=== PATIENT | male | born 1990 | race Caucasian/White ===

== ENCOUNTER 2016-09-17 20:14 | Emergency (ER) | payer BC, OTHER ==
[2016-09-17 21:12] VITALS: BP 129/76; PULSE 60; RESP 20; TEMP 98.2
[2016-09-17] MEDS ORDERED: IPRATROPIUM-ALBUTEROL 3 ML NEB INHALATION STA (21:18)
--- NOTE | 2016-09-17 21:32 | ED ---
General Adult HPI - General Chief complaint: Upper Respiratory Infection Stated complaint: SOB Time Seen by Provider: 09/17/16 20:15 Source: patient, RN notes reviewed Mode of arrival: ambulatory Limitations: no limitations - History of Present Illness Initial comments: This is a 26-year-old male with a past medical history significant for asthma but he has not had an exacerbation years. Patient states the last week he has been having tightness in his chest and coughing quite a bit. Patient states he been coughing up some sputum and this last time he had a little bit of blood in the sputum but he states he was coughing severely hard. Patient states he is mildly short of breath. No chest pain or palpitations. Patient denies any fever chills but he states he cannot stop coughing. Patient denies having any inhalers or nebulizer machines. Patient denies any smoking. - Related Data Previous Rx's Medication Instructions Recorded Albuterol Inhaler [Ventolin Hfa 1 - 2 puff INHALATION Q6HR PRN #2 09/17/16 Inhaler] puff Ciprofloxacin HCl [Cipro] 500 mg PO Q12HR #20 tablet 09/17/16 predniSONE 40 mg PO DAILY #8 tab 09/17/16 Allergies Allergy/AdvReac Type Severity Reaction Status Date / Time No Known Allergies Allergy Verified 07/05/15 06:06 Review of Systems ROS Statement: Those systems with pertinent positive or pertinent negative responses have been documented in the HPI. ROS Other: All systems not noted in ROS Statement are negative. Past Medical History Past Medical History: Asthma, Renal Disease Additional Past Medical History / Comment(s): polycystic kidney disease, eosinophillic esophagitis, History of Any Multi-Drug Resistant Organisms: None Reported Past Surgical History: No Surgical Hx Reported Past Psychological History: Anxiety Smoking Status: Never smoker Past Alcohol Use History: Occasional Past Drug Use History: None Reported General Exam - General Exam Comments Initial Comments: GENERAL: Patient is well-developed and well-nourished. Patient is nontoxic and well- hydrated and is in mild distress. ENT: Neck has full range of motion without eliciting any pain. EYES: The sclera were anicteric and conjunctiva were pink and moist. Extraocular movements were intact and pupils were equal round and reactive to light. Eyelids were unremarkable. PULMONARY: Slightly diminished breath sounds but no wheezing is heard. No audible rales rhonchi or wheezing was noted. CARDIOVASCULAR: There is a regular rate and rhythm without any murmurs gallops or rubs. ABDOMEN: Soft and nontender with normal bowel sounds. SKIN: Skin is clear with no lesions or rashes and otherwise unremarkable. NEUROLOGIC: Patient is alert and oriented x3. Cranial nerves II through XII are grossly intact. Motor and sensory are also intact. Normal speech, volume and content. Symmetrical smile. MUSCULOSKELETAL: Normal extremities with adequate strength and full range of motion. No lower extremity swelling or edema. No calf tenderness. LYMPHATICS: No significant lymphadenopathy is noted PSYCHIATRIC: Normal psychiatric evaluation. Normal interpersonal interactions appears functionally intact in deals appropriately with others. No signs of depression. No signs of anxiety. Limitations: no limitations Course Vital Signs 09/17/16 21:07 Temperature 98.2 F Pulse Rate 60 Respiratory 20 Rate Blood Pressure 129/76 O2 Sat by Pulse 100 Oximetry Medical Decision Making - Medical Decision Making Chest x-ray shows no acute abnormality Disposition Clinical Impression: Acute bronchitis with bronchospasm Disposition: HOME SELF-CARE Condition: Good Prescriptions: Albuterol Inhaler [Ventolin Hfa Inhaler] 1 - 2 puff INHALATION Q6HR PRN #2 puff PRN Reason: Difficulty breathing Ciprofloxacin HCl [Cipro] 500 mg PO Q12HR #20 tablet predniSONE 40 mg PO DAILY #8 tab Referrals: Bartolo Stewart MD [Primary Care Provider] - 1-2 days Time of Disposition: 21:41
[2016-09-17] MEDS ORDERED: predniSONE 50 MG TAB PO STA (21:38)
[2016-09-17] MEDS ORDERED: CIPROFLOXACIN HCL 500 MG TAB PO STA (21:39)
--- NOTE | 2016-09-17 21:54 | XR ---
EXAMINATION TYPE: XR chest 2V DATE OF EXAM: 09/17/2016 COMPARISON: August 21, 2014. HISTORY: Difficulty breathing TECHNIQUE: Frontal and lateral views of the chest are obtained. FINDINGS: There is no focal air space opacity, pleural effusion, or pneumothorax seen. The cardiac silhouette size is within normal limits. The osseous structures are intact. IMPRESSION: No acute cardiopulmonary process.
== END 2016-09-17 22:23 | disposition home or self-care (01) ==
LOC: EC 20:14
DX: J20.9 Acute bronchitis, unspecified (principal); R07.89 Other chest pain
CPT/HCPCS: 94640; 71020; 99283; J7512

== ENCOUNTER 2017-10-25 03:46 | Emergency (ER) | payer OTHER ==
[2017-10-25 03:51] VITALS: TEMP 97.6
[2017-10-25] MEDS ORDERED: MORPHINE SULFATE 4 MG/ML SYRINGE IVP STA (04:03)
[2017-10-25] MEDS ORDERED: ONDANSETRON 4 MG/2 ML VIAL IVP STA (04:03)
[2017-10-25] MEDS ORDERED: KETOROLAC 30 MG/ML 1 ML VIAL IVP STA (04:03)
[2017-10-25] MEDS ORDERED: SODIUM CHLORIDE 0.9% 1,000 ML IV ONE (04:15)
[2017-10-25 04:23] LABS: Basophils # (A) 0.1 k/uL (0-0.2); Basophils % (A) 1 %; Eosinophils # (A) 0.5 k/uL (0-0.7); Eosinophils % (A) 8 %; HCT 42.2 % (39.0-53.0); HGB 13.8 gm/dL (13.0-17.5); Lymphocytes # (A) 2.6 k/uL (1.0-4.8); Lymphocytes % (A) 45 %; MCH 28.5 pg (25.0-35.0); MCHC 32.6 g/dL (31.0-37.0); MCV 87.2 fL (80.0-100.0); Mean Platelet Volume 9.2; Monocytes # (A) 0.3 k/uL (0-1.0); Monocytes % (A) 5 %; Neutrophils # (A) 2.3 k/uL (1.3-7.7); Neutrophils % (A) 39 %; Platelet Count 186 k/uL (150-450); RBC 4.83 m/uL (4.30-5.90); RDW 12.9 % (11.5-15.5); WBC 5.8 k/uL (3.8-10.6)
--- NOTE | 2017-10-25 04:26 | ED ---
General Adult HPI - General Chief complaint: Urogenital Stated complaint: back pain Time Seen by Provider: 10/25/17 04:02 Source: patient Mode of arrival: ambulatory Limitations: no limitations - History of Present Illness Initial comments: Is a 27-year-old male with a history of polycystic kidney disease who presents emergency department for left-sided abdominal and flank pain. He states that his symptoms started 2 days ago however acutely worsened this morning and woke him from sleep. He states that he had some associated nausea and vomiting 2. He has been having hematuria. He was scheduled to have an ultrasound performed tomorrow to evaluate for kidney stone however the pain got so bad he decided come emergency department. He denies any dysuria or hematuria. No diarrhea or constipation. No other acute complaints. - Related Data Previous Rx's Medication Instructions Recorded Albuterol Inhaler [Ventolin Hfa 1 - 2 puff INHALATION Q6HR PRN #2 09/17/16 Inhaler] puff Ciprofloxacin HCl [Cipro] 500 mg PO Q12HR #20 tablet 09/17/16 predniSONE 40 mg PO DAILY #8 tab 09/17/16 HYDROcodone/APAP 5-325MG [[place] 1 tab PO Q6HR PRN 3 Days #8 tab 10/25/17 5-325] Tamsulosin [Flomax] 0.4 mg PO DAILY #7 cap 10/25/17 Allergies Allergy/AdvReac Type Severity Reaction Status Date / Time No Known Allergies Allergy Verified 10/25/17 03:51 Review of Systems ROS Statement: Those systems with pertinent positive or pertinent negative responses have been documented in the HPI. ROS Other: All systems not noted in ROS Statement are negative. Past Medical History Past Medical History: Asthma, Renal Disease Additional Past Medical History / Comment(s): polycystic kidney disease, eosinophillic esophagitis, History of Any Multi-Drug Resistant Organisms: None Reported Past Surgical History: No Surgical Hx Reported Past Psychological History: Anxiety Smoking Status: Never smoker Past Alcohol Use History: Occasional Past Drug Use History: None Reported General Exam - General Exam Comments Initial Comments: Constitutional: Awake alert patient appears uncomfortable and is diaphoretic Head: Normocephalic atraumatic Eyes: no conjunctival injection No scleral icterus EOMI Neck: No JVD Supple Heart: Regular rate rhythm normal S1-S2 no murmurs Lungs: Clear to auscultation bilaterally No wheezing No rales Abdomen: Soft nondistended mild tenderness to the left lower quadrant, no CVA tenderness Extremities: Non edematous DP pulses intact Radial pulses intact Neuro: A&Ox3 No focal neurologic deficits Psych: Appropriate mood and affect Limitations: no limitations Course Vital Signs 10/25/17 10/25/17 03:47 04:51 Temperature 97.6 F Pulse Rate 61 77 Respiratory 16 16 Rate Blood Pressure 116/63 108/56 O2 Sat by Pulse 100 Oximetry Medical Decision Making - Medical Decision Making Is a 27-year-old male who presents emergency department for left-sided flank pain. The patient has computed tomography scan that confirmed a 6 mm ureteral stone. The patient's pain was much controlled after pain medications. No evidence for infection. The patient will go home with Flomax and [place]. He was also discharged with a strainer and urology follow-up. Can return if he has recurring symptoms or anything concerning. All questions answered. - Lab Data Result diagrams: 10/25/17 03:57 10/25/17 03:57 Lab Results 10/25/17 10/25/17 10/25/17 Range/Units 03:57 03:57 04:00 WBC 5.8 (3.8-10.6) k/uL RBC 4.83 (4.30-5.90) m/uL Hgb 13.8 (13.0-17.5) gm/dL Hct 42.2 (39.0-53.0) % MCV 87.2 (80.0-100.0) fL MCH 28.5 (25.0-35.0) pg MCHC 32.6 (31.0-37.0) g/dL RDW 12.9 (11.5-15.5) % Plt Count 186 (150-450) k/uL Neutrophils % 39 % Lymphocytes % 45 % Monocytes % 5 % Eosinophils % 8 % Basophils % 1 % Neutrophils # 2.3 (1.3-7.7) k/uL Lymphocytes # 2.6 (1.0-4.8) k/uL Monocytes # 0.3 (0-1.0) k/uL Eosinophils # 0.5 (0-0.7) k/uL Basophils # 0.1 (0-0.2) k/uL Sodium 140 (137-145) mmol/L Potassium 4.5 (3.5-5.1) mmol/L Chloride 107 (98-107) mmol/L Carbon Dioxide 22 (22-30) mmol/L Anion Gap 11 mmol/L BUN 17 (9-20) mg/dL Creatinine 0.84 (0.66-1.25) mg/dL Est GFR (CKD-EPI)AfAm >90 (>60 ml/min/1.73 sqM) Est GFR (CKD-EPI)NonAf >90 (>60 ml/min/1.73 sqM) Glucose 165 H (74-99) mg/dL Calcium 9.5 (8.4-10.2) mg/dL Total Bilirubin 0.6 (0.2-1.3) mg/dL AST 24 (17-59) U/L ALT 18 L (21-72) U/L Alkaline Phosphatase 44 (38-126) U/L Total Protein 6.5 (6.3-8.2) g/dL Albumin 4.3 (3.5-5.0) g/dL Urine Color Yellow Urine Appearance Clear (Clear) Urine pH 5.5 (5.0-8.0) Ur Specific [place] 1.018 (1.001-1.035) Urine Protein Trace H (Negative) Urine Glucose (UA) Negative (Negative) Urine Ketones Negative (Negative) Urine Blood Large H (Negative) Urine Nitrite Negative (Negative) Urine Bilirubin Negative (Negative) Urine Urobilinogen <2.0 (<2.0) mg/dL Ur Leukocyte Esterase Trace H (Negative) Urine RBC >182 H (0-5) /hpf Urine WBC 12 H (0-5) /hpf Urine Mucus Few H (None) /hpf Disposition Clinical Impression: Ureterolithiasis Disposition: HOME SELF-CARE Condition: Stable Instructions: Kidney Stones (ED) Prescriptions: HYDROcodone/APAP 5-325MG [[place] 5-325] 1 tab PO Q6HR PRN 3 Days #8 tab PRN Reason: Pain Tamsulosin [Flomax] 0.4 mg PO DAILY #7 cap Is patient prescribed a controlled substance at d/c from ED?: Yes When asked, does pt state using other controlled substances?: No If prescribed controlled substance>3 days was MAPS reviewed?: Prescribed <3 Days If opioid is for acute pain is fill amount 7 days or less?: Yes Referrals: Bartolo Stewart MD [Primary Care Provider] - 1-2 days Som Breen MD [STAFF PHYSICIAN] - 1-2 days
[2017-10-25 04:28] LABS: Appearance,Urine Clear (Clear); Bilirubin,Urine Negative (Negative); Blood,Urine Large (Negative); Color,Urine Yellow; Glucose,Urine (UA) Negative (Negative); Ketones,Urine Negative (Negative); Leukocyte Esterase,Urine Trace (Negative); Mucus,Urine Few /hpf; Nitrite,Urine Negative (Negative); PH, Urine 5.5 (5.0-8.0); Protein,Urine Trace (Negative); RBC,Urine >182 /hpf (0-5); Specific Gravity,Urine 1.018 (1.001-1.035); Urobilinogen,Urine <2.0 mg/dL (<2.0); WBC,Urine 12 /hpf (0-5)
[2017-10-25 04:39] LABS: ALT 18 U/L (21-72); AST 24 U/L (17-59); Albumin 4.3 g/dL (3.5-5.0); Alkaline Phosphatase 44 U/L (38-126); Anion Gap 11 mmol/L; Blood Urea Nitrogen 17 mg/dL (9-20); Calcium 9.5 mg/dL (8.4-10.2); Carbon Dioxide 22 mmol/L (22-30); Chloride 107 mmol/L (98-107); Glucose 165 mg/dL (74-99); Sodium 140 mmol/L (137-145); Total Bilirubin 0.6 mg/dL (0.2-1.3); Total Protein 6.5 g/dL (6.3-8.2)
[2017-10-25 05:02] LABS: Potassium 4.5 mmol/L (3.5-5.1)
--- NOTE | 2017-10-25 05:34 | CT ---
EXAM: CT Abdomen and Pelvis Without Intravenous Contrast CLINICAL HISTORY: L flank pain TECHNIQUE: Axial computed tomography images of the abdomen and pelvis without intravenous contrast. CTDI is 5 mGy and DLP is 200 mGy-cm. This CT exam was performed using one or more of the following dose reduction techniques: automated exposure control, adjustment of the mA and/or kV according to patient size, and/or use of iterative reconstruction technique. COMPARISON: None. FINDINGS: Lung bases: Unremarkable. No mass. No consolidation. ABDOMEN: Liver: Numerous hepatic cysts. Gallbladder and bile ducts: Unremarkable. No calcified stones. No ductal dilation. Pancreas: Unremarkable. No ductal dilation. Spleen: Unremarkable. No splenomegaly. Adrenals: Unremarkable. No mass. Kidneys and ureters: 6-7 mm stone in the left ureterovesicular junction, resulting in mild left hydronephrosis and hydroureter. Numerous bilateral renal cystic lesions. Some of the cysts exhibit internal high density. Punctate bilateral nonobstructive renal stone/medullary nephrocalcinosis. Stomach and bowel: Unremarkable. No obstruction. No mucosal thickening. PELVIS: Appendix: No findings to suggest acute appendicitis. Bladder: Unremarkable. No stones. Reproductive: Unremarkable as visualized. ABDOMEN and PELVIS: Intraperitoneal space: Unremarkable. No free air. No significant fluid collection. Bones/joints: No acute fracture. No dislocation. Soft tissues: Unremarkable. Vasculature: Unremarkable. No abdominal aortic aneurysm. Lymph nodes: Unremarkable. No enlarged lymph nodes. IMPRESSION: 6-7 mm stone in the left ureterovesicular junction, resulting in mild left hydronephrosis and hydroureter. Nonobstructive bilateral renal stones/medullary nephrocalcinosis. Suspected polycystic kidney disease with innumerable cystic lesions in the kidneys and liver. Some of the cysts appear hemorrhagic.
[2017-10-25 05:56] VITALS: BP 124/82; PULSE 99; RESP 18
== END 2017-10-25 05:45 | disposition home or self-care (01) ==
LOC: EC 03:46
DX: N20.1 Calculus of ureter (principal); R61 Generalized hyperhidrosis; Q61.3 Polycystic kidney, unspecified
CPT/HCPCS: 36415; 74176; 80053; 81001; 85025; 96361; 96374; 96375; 99284

== ENCOUNTER → 2023-07-14 | Outpatient (CLI) | payer OTHER ==
[2023-07-15 06:30] LABS: Albumin 4.7 g/dL (3.8-4.9); Estradiol 38.7 pg/mL
[2023-07-15 08:20] LABS: Follicle Stimulating Hormone 1.8 mIU/mL
== END | disposition home or self-care (01) ==
LOC: LABWHC1 10:40
PROVIDERS: ATTEND Urology
DX: N52.01 Erectile dysfunction due to arterial insufficiency (principal)
CPT/HCPCS: 36415; 82040; 82670; 82947; 83001; 83002; 84146; 84270; 84402; 84403; 84436; 84443; 84479

== ENCOUNTER 2023-10-16 03:49 | Inpatient (IN) | payer MEDICAID, OTHER ==
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
[2023-10-16 06:13] LABS: Amphetamine Screen,Urine Not Detected (NotDetected); Barbiturate Screen,Urine Not Detected (NotDetected); Benzodiazepines Screen,Urine Not Detected (NotDetected); Cocaine Screen,Urine Not Detected (NotDetected); Methadone Screen, Urine Not Detected (NotDetected); Opiate Screen,Urine Not Detected (NotDetected); Oxycodone Screen, Urine Not Detected (NotDetected); Phencyclidine Screen,Urine Not Detected (NotDetected); Tricyclic Antidepressant,Urine Not Detected (NotDetected); Urn Cannabinoid Scrn Not Detected (NotDetected)
[2023-10-16] MEDS ORDERED: IBUPROFEN 600 MG TAB PO PRN (12:28)
[2023-10-16] MEDS ORDERED: MAGNESIUM HYDROXIDE 2,400 MG/30 ML CUP PO PRN (12:28)
[2023-10-16] MEDS ORDERED: ACETAMINOPHEN TAB 325 MG TAB PO PRN (12:28)
[2023-10-16] MEDS ORDERED: MAG HYDROX/AL HYDROX/SIMETH 355 ML BOTTLE PO PRN (12:28)
[2023-10-16] MEDS ORDERED: HALOPERIDOL LACTATE 5 MG/ML 1 ML VIAL IM PRN (12:28)
[2023-10-16] MEDS ORDERED: haloperidoL 5 MG TAB PO PRN (12:28)
[2023-10-16] MEDS ORDERED: LORazepam 1 MG TAB PO PRN (12:28)
[2023-10-16] MEDS ORDERED: LORazepam 2 MG/ML INJ IM PRN (12:28)
[2023-10-17] MEDS: NICOTINE 14MG/24HR PATCH TRANSDERM SCH (08:50)
[2023-10-17] MEDS ORDERED: hydrOXYzine pamoate 25 MG CAP PO PRN (11:03)
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
[2023-10-17] MEDS: ESCITALOPRAM 5 MG TAB PO STA (11:23)
[2023-10-17] MEDS: MULTIVITAMINS, THERA 1 EACH TAB PO SCH (11:23)
[2023-10-17] MEDS: CHOLECALCIFEROL 25 MCG (1000 IU) TABLET PO SCH (11:24)
[2023-10-17 13:15] LABS: Basophils % (A) 1 %; Eosinophils % (A) 1 %; HGB 15.4 gm/dL (13.0-17.5); Lymphocytes % (A) 20 %; MCH 29.5 pg (25.0-35.0); MCHC 32.8 g/dL (31.0-37.0); Mean Platelet Volume 9.9; Monocytes # (A) 0.3 k/uL (0-1.0); Monocytes % (A) 6 %; Neutrophils # (A) 3.7 k/uL (1.3-7.7); Neutrophils % (A) 72 %; Platelet Count 239 k/uL (150-450); RBC 5.23 m/uL (4.30-5.90); RDW 13.1 % (11.5-15.5); WBC 5.2 k/uL (3.8-10.6)
[2023-10-17 13:24] LABS: ALT 14 U/L (4-49); AST 24 U/L (17-59); African American GFR (CKD) >90 (>60 ml/min/1.73 sqM); Albumin 4.9 g/dL (3.5-5.0); Alkaline Phosphatase 60 U/L (38-126); Anion Gap 9 mmol/L; Bilirubin, Delta 0.2 mg/dL (0.0-0.2); Bilirubin,Unconjugated 0.6 mg/dL (0.0-1.1); Blood Urea Nitrogen 15 mg/dL (9-20); Calcium 10.1 mg/dL (8.4-10.2); Carbon Dioxide 27 mmol/L (22-30); Chloride 103 mmol/L (98-107); Glucose 102 mg/dL (74-99); Non-African American GFR(CKD) >90 (>60 ml/min/1.73 sqM); Potassium 4.4 mmol/L (3.5-5.1); Sodium 139 mmol/L (137-145); Total Bilirubin 0.8 mg/dL (0.2-1.3); Total Protein 7.3 g/dL (6.3-8.2)
[2023-10-17 15:08] VITALS: BMI 18.0
[2023-10-17 19:15] LABS: Chol/HDL Ratio 2.73 Ratio; LDL Cholesterol,Calculated 77.2 mg/dL (0.0-131.0); VLDL Calculation 13.48 mg/dL (5.00-40.00)
[2023-10-18] MEDS: ESCITALOPRAM 10 MG TAB PO SCH (08:24)
--- NOTE | 2023-10-18 12:39 | P.PN ---
Progress Note - Text Progress Note Date: 10/18/23 Interval History: Patient was seen via HIPAA-compliant Zoom (pt consented). He states that he is "all right" today. He states he slept better last night. He states his mood is improving, and his insight for treatment is improving. He says that he is feeling better and would like to be considered for discharge. He says he recognizes that his actions were problematic and that he should not have held a gun to his head. He says if he is concerned for someone's safety, he will contact police instead. He is future oriented to seeing his fiance and pet again. He also reports plans to see therapist after discharge and plans to attend AA meetings with his girlfriend. He expresses insight into how alcohol use worsened the circumstances leading to admission. He states his appetite is good. He denies any alcohol withdrawal symptoms or cravings for alcohol. He has not been given Ativan PRN and has been scoring 0-1. He denies access to gun and says it is now locked away with his in-laws and he does not have access to firearms. At this time patient denies any suicidal or homicidal ideations, i ntent or plan. Patient denies any auditory, visual hallucinations and denies any paranoia or delusions. Patient denies any side effects from the medications and has been compliant with meds. MENTAL STATUS EXAM: General Appearance: Patient appears to be stated age is alert, directable, and attempts to cooperate. Patient appears to have good hygiene and grooming. Dressed casually, trimmed pino, well groomed. Behavior: Patient is seated without any agitated behavior. minimizing Speech: Patient's speech is fluent and nonpressured. Mood/Affect: Patient reports their mood is fine, affect is congruent and constricted. Suicidality/Homicidality: Patient denies having any homicidal ideation intent or plan. Denies any suicidal ideations intent or plan Perceptions: Patient denies any visual hallucinations and denies any auditory hallucinations Though content/process: There is no evidence of any delusional thought content and thought process is linear and goal-directed. Focused on discharge. Memory and concentration: AOX3, grossly intact for the purposes of this session. 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 Patient has signed adult voluntary form and medication consent and is placed in patient's chart. Pt signed ITT - expires Sunday -Medications : Continue Lexapro 10mg daily for tomorrow for depression/anxiety, Vistaril 25mg PO [id number] PRN for anxiety -CIWA protocol with prn ativan -Ativan and Haldol PRN for agitation/aggression -Patient was counselled on substance abuse and desired to cut back on use -Patient was informed of the risks, benefits and side effects of the medication and patient verbally consented to taking the medications. -Internal Medicine consult to perform medical evaluation and physical. -NRT -nonsmoker -SW on board for discharge planning, including f/u care. Encourage patient to participate in groups to work on coping skills. If continues to be stable, would consider for discharge Sunday
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
[2023-10-19 05:50] VITALS: BP 118/78; PULSE 68; RESP 17; TEMP 96
--- NOTE | 2023-10-19 17:29 | P.DS ---
Providers Date of admission: 10/16/23 12:26 Vital Signs (72 hours) 10/16/23 10/16/23 10/17/23 13:56 14:06 07:03 Temperature 98.6 F 98.6 F 97.8 F Pulse Rate [ 71 71 86 Left Radial] Respiratory 18 18 Rate Blood Pressure 144/75 144/75 135/84 [Right Arm] O2 Sat by Pulse 100 100 Oximetry 10/18/23 10/19/23 08:26 05:49 Temperature 96 F L Pulse Rate [ 105 H 68 Left Radial] Respiratory 17 Rate Blood Pressure 135/87 118/78 [Right Arm] O2 Sat by Pulse 98 Oximetry Laboratory Results WBC 5.2 k/uL (3.8-10.6) 10/17/23 11:56 RBC 5.23 m/uL (4.30-5.90) 10/17/23 11:56 Hgb 15.4 gm/dL (13.0-17.5) 10/17/23 11:56 Hct 47.0 % (39.0-53.0) 10/17/23 11:56 MCV 90.0 fL (80.0-100.0) 10/17/23 11:56 MCH 29.5 pg (25.0-35.0) 10/17/23 11:56 MCHC 32.8 g/dL (31.0-37.0) 10/17/23 11:56 RDW 13.1 % (11.5-15.5) 10/17/23 11:56 Plt Count 239 k/uL (150-450) 10/17/23 11:56 MPV 9.9 10/17/23 11:56 Neutrophils % 72 % 10/17/23 11:56 Lymphocytes % 20 % 10/17/23 11:56 Monocytes % 6 % 10/17/23 11:56 Eosinophils % 1 % 10/17/23 11:56 Basophils % 1 % 10/17/23 11:56 Neutrophils # 3.7 k/uL (1.3-7.7) 10/17/23 11:56 Lymphocytes # 1.0 k/uL (1.0-4.8) 10/17/23 11:56 Monocytes # 0.3 k/uL (0-1.0) 10/17/23 11:56 Eosinophils # 0.0 k/uL (0-0.7) 10/17/23 11:56 Basophils # 0.0 k/uL (0-0.2) 10/17/23 11:56 Sodium 139 mmol/L (137-145) 10/17/23 11:56 Potassium 4.4 mmol/L (3.5-5.1) 10/17/23 11:56 Chloride 103 mmol/L (98-107) 10/17/23 11:56 Carbon Dioxide 27 mmol/L (22-30) 10/17/23 11:56 Anion Gap 9 mmol/L 10/17/23 11:56 BUN 15 mg/dL (9-20) 10/17/23 11:56 Creatinine 0.88 mg/dL (0.66-1.25) 10/17/23 11:56 Est GFR (CKD-EPI)AfAm >90 (>60 ml/min/1.73 sqM) 10/17/23 11:56 Est GFR (CKD-EPI)NonAf >90 (>60 ml/min/1.73 sqM) 10/17/23 11:56 Glucose 102 mg/dL (74-99) H 10/17/23 11:[address] Glu mg/dL 114 mg/dL 10/17/23 11:56 Hemoglobin A1c 5.6 % (<=6.0) 10/17/23 11:56 Calcium 10.1 mg/dL (8.4-10.2) 10/17/23 11:56 Total Bilirubin 0.8 mg/dL (0.2-1.3) 10/17/23 11:56 Conjugated Bilirubin 0.0 mg/dL (0.0-0.3) 10/17/23 11:56 Unconjugated Bilirubin 0.6 mg/dL (0.0-1.1) 10/17/23 11:56 Delta Bilirubin 0.2 mg/dL (0.0-0.2) 10/17/23 11:56 AST 24 U/L (17-59) 10/17/23 11:56 ALT 14 U/L (4-49) 10/17/23 11:56 Alkaline Phosphatase 60 U/L (38-126) 10/17/23 11:56 Total Protein 7.3 g/dL (6.3-8.2) 10/17/23 11:56 Albumin 4.9 g/dL (3.5-5.0) 10/17/23 11:56 Triglycerides 67.40 mg/dL (0.00-149.00) 10/17/23 11:56 Cholesterol 143.00 mg/dL (0.00-200.00) 10/17/23 11:56 LDL Cholesterol, Calc 77.2 mg/dL (0.0-131.0) 10/17/23 11:56 VLDL Cholesterol, Calc 13.48 mg/dL (5.00-40.00) 10/17/23 11:56 HDL Cholesterol 52.30 mg/dL (40.00-60.00) 10/17/23 11:56 Cholesterol/HDL Ratio 2.73 Ratio 10/17/23 11: TSH 1.070 mIU/L (0.465-4.680) 10/17/23 11:56 Urine Opiates Screen Not Detected (NotDetected) 10/16/23 04:09 Ur Oxycodone Screen Not Detected (NotDetected) 10/16/23 04:09 Urine Methadone Screen Not Detected (NotDetected) 10/16/23 04:09 Ur Barbiturates Screen Not Detected (NotDetected) 10/16/23 04:09 U Tricyclic Antidepress Not Detected (NotDetected) 10/16/23 04:09 Ur Phencyclidine Scrn Not Detected (NotDetected) 10/16/23 04:09 Ur Amphetamines Screen Not Detected (NotDetected) 10/16/23 04:09 U Methamphetamines Scrn Not Detected (NotDetected) 10/16/23 04:09 U Benzodiazepines Scrn Not Detected (NotDetected) 10/16/23 04:09 Urine Cocaine Screen Not Detected (NotDetected) 10/16/23 04:09 U Marijuana (THC) Screen Not Detected (NotDetected) 10/16/23 04:09 Influenza Type A (PCR) Not Detected (Not Detectd) 10/16/23 05:50 Influenza Type B (PCR) Not Detected (Not Detectd) 10/16/23 05:50 RSV (PCR) Not Detected (Not Detectd) 10/16/23 05:50 SARS-CoV-2 (PCR) Not Detected (Not Detectd) 10/16/23 05:50 Expected date of discharge: 10/19/23 Attending physician: Uriel Gates MD Consults: 10/16/23 12:28 Consult Physician Routine Consulting Provider: [facility] Consult Reason/Comments: History and Physical Do you want consulting provider notified?: Yes Primary care physician: Stated None Hospital Course: Admission HPI: Admission note was completed by Dr. Gates "IDENTIFYING DATA: Patient is a 33-year-old male, lives with kianna, in a house. No children. 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 HPI: Patient presented to the hospital [on 10/15. As per EPS note, "Patient brought in by the police after an altercation with his chelo.Patient also relates "I also caught my chelo on snap chat talking to an exboyfriend which started the fighting." Patient initally stated "I took an unloaded gun an put it in to my cheek in an effort to stop by chelo from self harming, she was cutting herself after our fight,throwing stuff and hitting me." This rfp writer was intially told that allegedly the gun was loaded and that he reported to the police he held the gun to his head to end his life. Chelo told police that patient held a gun to is head and wanted to end it all. Patient then informed this rfp writer that he unloaded the gun and placed bullets on the kitchen table and then held it to his head. Both the gun and amunition are still on the table at the patient's home according to the patient. Patient informed this rfp writer that he suffers from seperation anxiey and that he is fearful of his fiancee leaving him. Patient admitted to "bouncing around seeing counselors and allegedly has a psychiatrist in [facility]. Patient also informed this rfp writer that he has been seen in this for suicidal ideation and depression and is usually associated with relationship issues. Patient also reporting grief issues secondary to the sudden of his Mother last year." Upon todays assessment, he stated him and his fiance got into an argument, and went into the bathroom so she could self harm, by cutting herself. So he grabbed an unloaded gun and put it to his cheek to show her how it feels to see someone you love trying to hurt them self. He states they were both drinking, and he drinks most nights of the week, and he denies ever having withdraw symptoms. He states his life is good right now, and he is thankful for everything in his life, and he just graduated college. He is adamant that he was not trying to hurt himself, that he was just trying to snap his fiance out of her self harm behavior. He states that he does not get good sleep, due to working so much. Patient was initially admitted involuntarily, but has agreed to sign an AFV. Patient denies any suicidal or homicidal ideations intent or plan. At this time patient denies any auditory or visual hallucinations. Patient denies any flight of ideas racing thoughts and increased in goal directed behavior. Patient admits to using alcohol. PAST PSYCHIATRIC HISTORY: Patient denies being on any psychiatric medications. Patient denies any previous psychiatric hospitalizations. He sees a therapist at [facility] in [place] every 3 weeks, but wants to start going weekly. Patient denies any history of suicide attempts in the past. PMH:As per ER note ALLERGIES: as per EMR CHEMICAL DEPENDENCY HISTORY: as per HPI FAMILY PSYCHIATRIC/SUBSTANCE USE HISTORY: some family members have anxiety. SOCIAL HISTORY: Patient was born and raised in [place]. Bachelors degree from college. Engaged. No children. 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 Denies legal issues. MENTAL STATUS EXAM: General Appearance: Patient appears to be stated age is alert, directable, and attempts to cooperate. Patient appears to have good hygiene and grooming. Dressed casually, trimmed pino, well groomed. Behavior: Patient is seated without any agitated behavior. minimizing Speech: Patient's speech is fluent and nonpressured. Mood/Affect: Patient reports their mood is fine, affect is congruent and constricted. Suicidality/Homicidality: Patient denies having any homicidal ideation intent or plan. Denies any suicidal ideations intent or plan Perceptions: Patient denies any visual hallucinations and denies any auditory hallucinations Though content/process: There is no evidence of any delusional thought content and thought process is linear and goal-directed. Focused on discharge. Memory and concentration: AOX3, grossly intact for the purposes of this session. Can spell "WORLD" backwards Judgment and insight: poor STRENGTHS/WEAKNESSES: strength is that patient is resilient. 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 Patient has signed adult voluntary form and medication consent and is placed in patient's chart. -Medications : Will start patient on Lexapro, give 5 mg dose today and increase to 10mg daily for tomorrow for depression/anxiety, Visteral 25mg PO [id number] PRN for anxiety -CIWA protocol with prn ativan -Ativan and Haldol PRN for agitation/aggression -Patient was counselled on substance abuse and desired to cut back on use -Patient was informed of the risks, benefits and side effects of the medication and patient verbally consented to taking the medications. -Internal Medicine consult to perform medical evaluation and physical. -NRT -nonsmoker -SW on board for discharge planning. Encourage patient to participate in groups to work on coping skills. " Hospital course: Upon admission to the unit patient was directable and agreeable to commence treatment and signed adult voluntary form, but later signed a 72-hour intent to terminate treatment due to wanting to discharge home. Patient got along well with other patients on the unit and followed unit protocol. Patient was compliant with the medications and denied any side effects throughout hospital course. Patient was started on Lexapro 5 mg daily and titrated to 10 mg daily for depression and anxiety. Patient spoke of his stressors and engaged in therapy both group and individual. Patient was also seen by medical team for history and physical exam. Throughout the course of the hospitalization patient gradually improved with regards to mood, anxiety, and became more future oriented with improved insight and judgment. On the day of discharge patient denied any suicidal or homicidal ideation, intent or plan denied any auditory or visual hallucinations. Patient endorsed wanting to live for his health and family. The patient denied any access to guns or weapons (this was confirmed by the social media developer contacting the fiance and the gun has been removed from the home). Patient denied any paranoia and did not endorse any delusions. Patient does have a significant history of alcohol abuse and was counseled on abstaining from all substances including alcohol and marijuana. He also denies any signs or symptoms of alcohol withdrawal. Patient was offered however declined inpatient substance-abuse rehab. Patient elected to do outpatient substance use treatment program through [facility]. Patient was also counseled on the medications and need for regular compliance and was encouraged to follow-up with their outpatient appointment for mental health and also for primary care. Prior to discharge, his grandmother was contacted by social media developer to answer any questions and ensure safety upon discharge. Grandmother was supportive of discharge home and agreed to continuous pickling line pickler patient from the hospital to take him to her house. Mental status exam: General Appearance: Patient appears to be stated age is alert, pleasant, and cooperative. Patient is in no acute distress and has improved hygiene and grooming Behavior: Patient is calmly seated without any agitated behavior. Speech: Patient's speech is fluent and non-pressured. Mood/Affect: Patient reports their mood is "good", affect is congruent and euthymic. Suicidality/Homicidality: Patient denies having any suicidal or homicidal ideation intent or plan. Perceptions: Patient denies any auditory or visual hallucinations. Though content/process: There is no evidence of any delusional thought content and thought process is linear and goal-directed, more future oriented. Memory and concentration: AOX3, grossly intact for the purposes of this session. Judgment and insight: Improved with guarded prognosis Impression: Unspecified depressive disorder, r/o MDD vs Substance (alcohol)-induced depressive disorder Unspecified anxiety disorder Alcohol use disorder Plan: -Continue with discharge today as patient has improved and stabilized psychia trically and is not currently an imminent threat to himself and/or others. Patient will remain at chronically elevated risk for harm to self and/or others due to his impulsivity and alcohol abuse. -Continue medications: Lexapro 10 mg daily for depression/anxiety. -Patient was counseled on the need for medication compliance and appropriate follow-up at mental health and also primary care for medical issues. Patient verbalized understanding and agreed. -Social work to conducted family meeting with grandmother to ensure safety upon discharge and answer any questions/concerns. Social work also to arrange for patients follow up appointments for psychiatric care along with follow up with primary care provider. -Patient counseled on abstaining from recreational drugs and alcohol. Was informed/educated on the adverse effects on their physical and mental health. Patient verbally agreed and understood. Patient was offered substance abuse treatment. -Patient was instructed to return to the hospital or seek immediate medical care if their psychiatric or medical symptoms do worsen or reoccur. Vital Signs (72 hours) 10/17/23 10/18/23 10/19/23 07:03 08:26 05:49 Temperature 97.8 F 96 F L Pulse Rate [ 86 105 H 68 Left Radial] Respiratory 17 Rate Blood Pressure 135/84 135/87 118/78 [Right Arm] O2 Sat by Pulse 98 Oximetry Laboratory Results WBC 5.2 k/uL (3.8-10.6) 10/17/23 11:56 RBC 5.23 m/uL (4.30-5.90) 10/17/23 11:56 Hgb 15.4 gm/dL (13.0-17.5) 10/17/23 11:56 Hct 47.0 % (39.0-53.0) 10/17/23 11:56 MCV 90.0 fL (80.0-100.0) 10/17/23 11:56 MCH 29.5 pg (25.0-35.0) 10/17/23 11:56 MCHC 32.8 g/dL (31.0-37.0) 10/17/23 11:56 RDW 13.1 % (11.5-15.5) 10/17/23 11:56 Plt Count 239 k/uL (150-450) 10/17/23 11:56 MPV 9.9 10/17/23 11:56 Neutrophils % 72 % 10/17/23 11:56 Lymphocytes % 20 % 10/17/23 11:56 Monocytes % 6 % 10/17/23 11:56 Eosinophils % 1 % 10/17/23 11:56 Basophils % 1 % 10/17/23 11:56 Neutrophils # 3.7 k/uL (1.3-7.7) 10/17/23 11:56 Lymphocytes # 1.0 k/uL (1.0-4.8) 10/17/23 11:56 Monocytes # 0.3 k/uL (0-1.0) 10/17/23 11:56 Eosinophils # 0.0 k/uL (0-0.7) 10/17/23 11:56 Basophils # 0.0 k/uL (0-0.2) 10/17/23 11:56 Sodium 139 mmol/L (137-145) 10/17/23 11:56 Potassium 4.4 mmol/L (3.5-5.1) 10/17/23 11:56 Chloride 103 mmol/L (98-107) 10/17/23 11:56 Carbon Dioxide 27 mmol/L (22-30) 10/17/23 11:56 Anion Gap 9 mmol/L 10/17/23 11:56 BUN 15 mg/dL (9-20) 10/17/23 11:56 Creatinine 0.88 mg/dL (0.66-1.25) 10/17/23 11:56 Est GFR (CKD-EPI)AfAm >90 (>60 ml/min/1.73 sqM) 10/17/23 11:56 Est GFR (CKD-EPI)NonAf >90 (>60 ml/min/1.73 sqM) 10/17/23 11:56 Glucose 102 mg/dL (74-99) H 10/17/23 11:[address] Glu mg/dL 114 mg/dL 10/17/23 11:56 Hemoglobin A1c 5.6 % (<=6.0) 10/17/23 11:56 Calcium 10.1 mg/dL (8.4-10.2) 10/17/23 11:56 Total Bilirubin 0.8 mg/dL (0.2-1.3) 10/17/23 11:56 Conjugated Bilirubin 0.0 mg/dL (0.0-0.3) 10/17/23 11:56 Unconjugated Bilirubin 0.6 mg/dL (0.0-1.1) 10/17/23 11:56 Delta Bilirubin 0.2 mg/dL (0.0-0.2) 10/17/23 11:56 AST 24 U/L (17-59) 10/17/23 11:56 ALT 14 U/L (4-49) 10/17/23 11:56 Alkaline Phosphatase 60 U/L (38-126) 10/17/23 11:56 Total Protein 7.3 g/dL (6.3-8.2) 10/17/23 11:56 Albumin 4.9 g/dL (3.5-5.0) 10/17/23 11:56 Triglycerides 67.40 mg/dL (0.00-149.00) 10/17/23 11:56 Cholesterol 143.00 mg/dL (0.00-200.00) 10/17/23 11:56 LDL Cholesterol, Calc 77.2 mg/dL (0.0-131.0) 10/17/23 11:56 VLDL Cholesterol, Calc 13.48 mg/dL (5.00-40.00) 10/17/23 11:56 HDL Cholesterol 52.30 mg/dL (40.00-60.00) 10/17/23 11:56 Cholesterol/HDL Ratio 2.73 Ratio 10/17/23 11:56 TSH 1.070 mIU/L (0.465-4.680) 10/17/23 11:56 Urine Opiates Screen Not Detected (NotDetected) 10/16/23 04:09 Ur Oxycodone Screen Not Detected (NotDetected) 10/16/23 04:09 Urine Methadone Screen Not Detected (NotDetected) 10/16/23 04:09 Ur Barbiturates Screen Not Detected (NotDetected) 10/16/23 04:09 U Tricyclic Antidepress Not Detected (NotDetected) 10/16/23 04:09 Ur Phencyclidine Scrn Not Detected (NotDetected) 10/16/23 04:09 Ur Amphetamines Screen Not Detected (NotDetected) 10/16/23 04:09 U Methamphetamines Scrn Not Detected (NotDetected) 10/16/23 04:09 U Benzodiazepines Scrn Not Detected (NotDetected) 10/16/23 04:09 Urine Cocaine Screen Not Detected (NotDetected) 10/16/23 04:09 U Marijuana (THC) Screen Not Detected (NotDetected) 10/16/23 04:09 Influenza Type A (PCR) Not Detected (Not Detectd) 10/16/23 05:50 Influenza Type B (PCR) Not Detected (Not Detectd) 10/16/23 05:50 RSV (PCR) Not Detected (Not Detectd) 10/16/23 05:50 SARS-CoV-2 (PCR) Not Detected (Not Detectd) 10/16/23 05:50 Patient Condition at Discharge: Stable Plan - Discharge Summary Discharge Rx Participant: No New Discharge Prescriptions: New Escitalopram [Lexapro] 10 mg PO DAILY 30 Days #30 tab Cholecalciferol [Vitamin D3 (25 Mcg = 1000 Iu)] 100 mcg PO DAILY tab Multivitamins, Thera [Multivitamin (formulary)] 1 each PO DAILY tab Continue tadalafiL 5 - 20 mg PO DAILY PRN PRN Reason: e.d. Discharge Medication List tadalafiL 5 - 20 mg PO DAILY PRN 10/16/23 [History] Cholecalciferol [Vitamin D3 (25 Mcg = 1000 Iu)] 100 mcg PO DAILY tab 10/19/23 [Rx] Escitalopram [Lexapro] 10 mg PO DAILY 30 Days #30 tab 10/19/23 [Rx] Multivitamins, Thera [Multivitamin (formulary)] 1 each PO DAILY tab 10/19/23 [Rx] Follow up Appointment(s)/Referral(s): [facility] [Other] - 10/26/23 10:00 am (Edd Hollis 10/25 @ 10:00) [facility] [NON-STAFF] - 1 Week Activity/Diet/Wound Care/Special Instructions: Avoid the use of street drugs and alcohol. Take all prescriptions as prescribed. When you are in need of refills on your medications, please contact your medical provider and/or outpatient psychiatrist to have this done. Please go to scheduled outpatient appointment for aftercare treatment. If symptoms return or become worse, call the crisis line at and/or go to the nearest emergency room for evaluation Discharge/Stand Alone Forms: AA Meetings [facility] & 24 - [facility], AA Meetings [place] Discharge Disposition: HOME SELF-CARE
== END 2023-10-19 14:57 | disposition home or self-care (01) | DRG 755 ==
LOC: EC 03:49 → 3MHU 12:26
PROVIDERS: ADMIT Psychiatry & Neurology Psychiatry; ATTEND Psychiatry & Neurology Psychiatry
DX: F43.25 Adjustment disorder with mixed disturbance of emotions and conduct (principal); Z28.21 Immunization not carried out because of patient refusal; F10.10 Alcohol abuse, uncomplicated; F32.A Depression, unspecified; F43.22 Adjustment disorder with anxiety; J45.909 Unspecified asthma, uncomplicated; Q61.3 Polycystic kidney, unspecified; R45.851 Suicidal ideations; Z79.899 Other long term (current) drug therapy; Z63.0 Problems in relationship with spouse or partner; Z11.52 Encounter for screening for COVID-19; Z63.4 Disappearance and death of family member; Z71.3 Dietary counseling and surveillance; Z71.89 Other specified counseling
CPT/HCPCS: 80053; 80061; 80306; 82075; 82248; 83036; 84443; 85025; 87636; 99285